=== PATIENT | male | born 1965 | race Caucasian/White ===

== ENCOUNTER 2017-11-24 13:21 | Emergency (ER) | payer OTHER ==
[2017-11-24 13:48] VITALS: BP 161/93; PULSE 80; RESP 18; TEMP 98; O2SAT 98
[2017-11-24] MEDS ORDERED: Oxycodone/Acetaminophen 5/325 mg Tab PO STA (14:09)
--- NOTE | 2017-11-24 14:09 | C.PDOC ---
History Of Present Illness Patient is a 52 y/o male who presents to the ED with a new onset of right knee pain for the last 3 weeks. Patient reports pain worsens with weight bearing. Admits to swelling and increased warmth to area; denies trauma, Hx of chronic knee pain, or relief with Motrin 800mg. No other physical complaints at this time. NEW ONSET R KNEE PAIN X 3 WEEKS. PAIN WORSE W WT BEAR. +SWELLING, INCR WARMTH. NO TRAUMA. DENIES HO CHRONIC KNEE PAIN. NO RELIEF W MOTRIN 800 MG EXAM MILD DIST EXT L KNEE AROM WO DIFF NO SWELL NONTEND; R KNEE +MILD SWELL NO FOCAL TEND AROM W MILD PAIN, WORSE W WT BEAR; NO ERYTHEMA. NO GROSS SUBLUX. SKIN WNL REMAINDE RNEG Time Seen by Provider: 11/24/17 14:01 Chief Complaint (Nursing): Lower Extremity Problem/Injury History Per: Patient History/Exam Limitations: no limitations Onset/Duration Of Symptoms: Days (3 weeks ) Current Symptoms Are (Timing): Still Present - Knee Currently Unable To: Bear Weight (pain worsens) Past Medical History Reviewed: Historical Data, Nursing Documentation, Vital Signs Vital Signs: Last Vital Signs Temp 98.0 F 11/24/17 13:45 Pulse 80 11/24/17 13:45 Resp 18 11/24/17 13:45 BP 161/93 H 11/24/17 13:45 Pulse Ox 98 11/24/17 14:57 - Medical History PMH: No Chronic Diseases Surgical History: No Surg Hx Family History: States: No Known Family Hx - Social History Hx Tobacco Use: No Hx Alcohol Use: No Hx Substance Use: No - Immunization History Hx Tetanus Toxoid Vaccination: No Hx Influenza Vaccination: No Hx Pneumococcal Vaccination: No Review Of Systems Musculoskeletal: Positive for: Leg Pain (right knee pain) Physical Exam - Physical Exam Appears: In Acute Distress (mild) Skin: Normal Color, Warm, Dry Extremity: Normal ROM (left knee active ROM without difficulty, negative swelling, nontender; right knee active ROM with mild pain, worse with weight bearing), No Tenderness (negative focal tenderness to right knee), Swelling ( mild swelling to right knee), Other (negative gross subluxing of right knee; nonerythematous right knee) Neurological/Psych: Oriented x3, Normal Speech, Normal Cognition Gait: Unsteady ED Course And Treatment O2 Sat by Pulse Oximetry: 98 - Other Rad Right knee XR X-Ray: Interpreted by Me, Viewed By Me Interpretation: Right knee three views. History: Knee pain. Comparison: None available. Findings: Mild medial compartment joint space narrowing of the femorotibial joint space. No evidence for acute displaced fracture or dislocation. No significant suprapatellar joint effusion. Impression: Mild degenerative changes. If pain persists, consider MRI. Progress Note: Right knee XR ordered. Zofran and percocet administered. Right knee brace applied. Patient resting comfortably and stable for discharge. Advised to follow up with PMD if symptoms worsen. Disposition Counseled Patient/Family Regarding: Studies Performed, Diagnosis, Need For Followup - Disposition Referrals: [facility] [Outside] [facility] [Outside] Disposition: HOME/ ROUTINE Disposition Time: 14:33 Condition: IMPROVED Prescriptions: Tramadol HCl [Ultram] 50 mg PO QID #20 tab Instructions: Chronic Knee Pain Forms: [facility] (Nauruan), Work Excuse - Clinical Impression Clinical Impression: Knee pain - Scribe Statement The provider has reviewed the documentation as recorded by the Scribe Sherry Silva All medical record entries made by the Scribe were at my direction and personally dictated by me. I have reviewed the chart and agree that the record accurately reflects my personal performance of the history, physical exam, medical decision making, and the department course for this patient. I have also personally directed, reviewed, and agree with the discharge instructions and disposition. Orthopedic Care Application Of:: Knee Immobilizer
[2017-11-24] MEDS ORDERED: Oxycodone/Acetaminophen 5/325 mg Tab ONE (14:15)
--- NOTE | 2017-11-24 17:39 | RAD ---
Right knee three views History: Knee pain. Comparison: None available. Findings: Mild medial compartment joint space narrowing of the femorotibial joint space. No evidence for acute displaced fracture or dislocation. No significant suprapatellar joint effusion. Impression: Mild degenerative changes. If pain persists, consider MRI.
== END 2017-11-24 14:40 | disposition home or self-care (01) ==
LOC: C.ER 13:21
DX: M25.561 Pain in right knee (principal)